=== PATIENT | female | born 1960 | race African-American/Black ===

== ENCOUNTER 2020-12-05 16:28 | Emergency (ER) | payer MEDICARE, OTHER ==
[~2020-12-05] VITALS: Ht 167.6 cm; Wt 102.1 kg
[~2020-12-05 16:28] MED LIST: ALBU17AE4 IH; HYDR-3658 PO; OXYC30TA2 PO; [UNRECOGNIZED DRUG - CODE] PO
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
[2020-12-05] MEDS ORDERED: OMEP20CA15 PO (17:15)
[2020-12-05] MEDS ORDERED: HYDR-3980 PO (17:15)
[2020-12-05] MEDS ORDERED: CYCL10TA9 MT (17:15)
[2020-12-05] MEDS ORDERED: NAPR-1009 PO (17:51)
[2020-12-05] MEDS ORDERED: HYDROCODONE/APAP 5/325MG TABLET ONE (17:59)
[2020-12-05] MEDS ORDERED: HYDROCODONE/APAP 5/325MG TABLET PO ONE (18:00)
--- NOTE | 2020-12-05 18:04 | NUR ---
The patient alert and oriented x4. Patient discharged to home in stable condition. Written and verbal after care instructions given. Patient verbalizes understanding of instruction. The patient left ER in stable condition.
[2020-12-05 18:05] VITALS: BP 123/73
== END 2020-12-05 18:06 | disposition home or self-care (01) ==
LOC: ER 16:36
DX: M54.5 Low back pain (principal); G89.29 Other chronic pain; F17.200 Nicotine dependence, unspecified, uncomplicated; Z90.710 Acquired absence of both cervix and uterus; Z98.890 Other specified postprocedural states; Z60.2 Problems related to living alone; Z79.899 Other long term (current) drug therapy; V49.49XA Driver injured in collision with other motor vehicles in traffic accident, initial encounter; Y93.89 Activity, other specified; Y92.488 Other paved roadways as the place of occurrence of the external cause; Y99.8 Other external cause status

== ENCOUNTER 2021-02-14 14:13 | Emergency (ER) | payer MEDICARE, OTHER ==
[~2021-02-14] VITALS: Ht 165.1 cm; Wt 88.5 kg
[~2021-02-14 14:13] MED LIST changes: -ALBU17AE4 IH; +CYCL10TA9 MT; -HYDR-3658 PO; +HYDR-3980 PO; +NAPR-1009 PO; +OMEP20CA15 PO; -OXYC30TA2 PO; -[UNRECOGNIZED DRUG - CODE] PO
[2021-02-14 14:20] VITALS: BP 141/89
[2021-02-14] MEDS ORDERED: CEPH500C2 PO (14:34)
--- NOTE | 2021-02-14 14:46 | NUR ---
Patient discharged to home in stable condition. Written and verbal after care instructions given. Patient verbalizes understanding of instruction.
== END 2021-02-14 14:54 | disposition home or self-care (01) ==
LOC: ER 14:15
DX: S90.562A Insect bite (nonvenomous), left ankle, initial encounter (principal); L08.9 Local infection of the skin and subcutaneous tissue, unspecified; F17.200 Nicotine dependence, unspecified, uncomplicated; Z98.890 Other specified postprocedural states; Z60.2 Problems related to living alone; Z79.899 Other long term (current) drug therapy; W57.XXXA Bitten or stung by nonvenomous insect and other nonvenomous arthropods, initial encounter; Y93.89 Activity, other specified; Y92.89 Other specified places as the place of occurrence of the external cause; Y99.8 Other external cause status

== ENCOUNTER 2023-05-03 19:33 | Emergency (ER) | payer MEDICARE, OTHER ==
[~2023-05-03] VITALS: Ht 165.1 cm; Wt 77.1 kg
[~2023-05-03 19:33] MED LIST changes: +CEPH500C2 PO
[2023-05-03 20:06] VITALS: TEMP 98.2
[2023-05-03] MEDS ORDERED: HYDROCODONE/APAP 10/325MG TABLET ONE (21:18)
[2023-05-03] MEDS ORDERED: HYDROCODONE/APAP 10/325MG TABLET PO ONE (21:30)
[2023-05-03] MEDS ORDERED: NAPR-1164 PO (21:58)
[2023-05-03 23:40] VITALS: BP 141/71; O2SAT 98
== END 2023-05-03 23:41 | disposition home or self-care (01) ==
LOC: ER 19:36
DX: S49.92XA Unspecified injury of left shoulder and upper arm, initial encounter (principal); G89.29 Other chronic pain; M54.50 Low back pain, unspecified; Z90.710 Acquired absence of both cervix and uterus; Z60.2 Problems related to living alone; W01.0XXA Fall on same level from slipping, tripping and stumbling without subsequent striking against object, initial encounter; Y93.89 Activity, other specified; Y92.481 Parking lot as the place of occurrence of the external cause; Y99.8 Other external cause status
CPT/HCPCS: 73030-TC

== ENCOUNTER 2023-05-15 07:21 | Emergency (ER) | payer MEDICARE, OTHER ==
[~2023-05-15] VITALS: Ht 165.1 cm; Wt 74.8 kg
[~2023-05-15 07:21] MED LIST changes: +NAPR-1164 PO
[2023-05-15] MEDS ORDERED: NAPR-1164 PO (09:51)
[2023-05-15] MEDS ORDERED: CYCL5TAB PO (09:51)
[2023-05-15 10:19] VITALS: BP 131/70; TEMP 97.7; O2SAT 98
== END 2023-05-15 10:20 | disposition home or self-care (01) ==
LOC: ER 07:21
DX: S09.8XXA Other specified injuries of head, initial encounter (principal); M25.512 Pain in left shoulder; M54.50 Low back pain, unspecified; M25.561 Pain in right knee; M25.552 Pain in left hip; F17.200 Nicotine dependence, unspecified, uncomplicated; Z79.899 Other long term (current) drug therapy; Z98.890 Other specified postprocedural states; Z90.49 Acquired absence of other specified parts of digestive tract; W01.0XXA Fall on same level from slipping, tripping and stumbling without subsequent striking against object, initial encounter; Y93.01 Activity, walking, marching and hiking; Y92.89 Other specified places as the place of occurrence of the external cause; Y99.8 Other external cause status
CPT/HCPCS: 70450-TC; 72125-TC; 72170-TC; 73030-TC; 73502; 73564-TC